=== PATIENT | female | born 1985 ===

== ENCOUNTER 2022-07-12 18:05 | Emergency (ER) | payer SELFPAY ==
[2022-07-12] MEDS ORDERED: Acetaminophen 500 MG TAB ONE (21:18)
[2022-07-12] MEDS ORDERED: Ibuprofen 800 MG TAB ONE (21:18)
== END 2022-07-12 22:27 | disposition left against medical advice (07) ==
LOC: ERS 18:05
DX: R05.9 Cough, unspecified (principal); R09.81 Nasal congestion; R51.9 Headache, unspecified; Z87.891 Personal history of nicotine dependence